=== PATIENT | female | born 1940 | race African-American/Black ===

== ENCOUNTER 2019-04-29 17:21 | Observation (INO) ==
[2019-04-29] MEDS ORDERED: ONDANSETRON 4 MG/2 ML VIAL IV PRN (20:11)
[2019-04-29] MEDS ORDERED: GLUCAGON 1 MG VIAL IM PRN (21:01)
[2019-04-29] MEDS ORDERED: DEXTROSE 50% 25 GM/50 ML VIAL IV PRN (21:01)
[2019-04-29] MEDS: ACETAMINOPHEN 325 MG TABLET PO PRN (21:50)
[2019-04-29] MEDS ORDERED: MORPHINE 4 MG/1 ML VIAL IV PRN (22:50)
[2019-04-30] MEDS ORDERED: traMADol 50 MG TABLET PO PRN (00:05)
[2019-04-30] MEDS: hydrALAZINE 20 MG/1 ML VIAL IV PRN ×2 (00:26→05:20)
[2019-04-30] MEDS: traMADol 50 MG TABLET PO PRN ×3 (00:47→22:02)
[2019-04-30] MEDS: OLANZapine 5 MG TABLET PO SCH ×2 (01:35→22:02)
[2019-04-30 01:53] LABS: Basophils % 0.3 % (0.0-0.8); Eosinophils % 0.5 % (0.00-10.9); Hematocrit 36.5 VOL% (35.7-47.0); Hemoglobin 11.3 GM/DL (12.0-16.0); Immature Granulocytes % 0.3 %; Immature Granulocytes Absolute 0.01 #; Mean Corpuscular Volume 93.8 FL (87-102); Monocytes % 8.2 % (1.7-12.7); Neutrophils % 64.7 % (38.7-73.9); Platelet Count 195 T/CUMM (130-400); Red Blood Count 3.89 MC/CUMM (3.8-5.5); Red Cell Distribution Width 12.5 % (9.3-17.3); White Blood Count 3.9 T/CUMM (4-12)
[2019-04-30 02:07] LABS: Calcium 9.1 MG/DL (8.5-10.1); Osmolality,Calculated 300.1 MOS/KG (273-304)
[2019-04-30] MEDS ORDERED: LISINOPRIL 20 MG TABLET PO SCH (09:00)
[2019-04-30] MEDS ORDERED: cloNIDine 0.1 MG TABLET PO SCH (09:00)
[2019-04-30] MEDS: GABAPENTIN 300 MG CAPSULE PO SCH (09:06)
[2019-04-30] MEDS: carvediloL 25 MG TABLET PO SCH ×2 (09:06→22:01)
[2019-04-30] MEDS: FERROUS SULFATE 325 MG TABLET PO SCH ×2 (09:06→22:02)
[2019-04-30] MEDS: PANTOPRAZOLE 40 MG TABLET PO SCH (09:06)
[2019-04-30] MEDS: RIVAROXABAN 10 MG TABLET PO SCH (09:06)
[2019-04-30] MEDS: LEVOTHYROXINE 50 MCG TABLET PO SCH (09:07)
[2019-04-30] MEDS: INSULIN REGULAR 100 UNIT/ML SUBCUT SCH ×4 (09:40→22:03)
[2019-04-30] MEDS: glipiZIDE 10 MG TABLET PO SCH ×2 (09:40→17:19)
[2019-04-30] MEDS: NITROGLYCERIN 2% OINT 1 INCH/GM PACK TOP SCH ×2 (12:05→22:02)
[2019-04-30 13:11] LABS: Troponin I 0.128 NG/ML (0.00-0.045)
[2019-04-30] MEDS: cloNIDine 0.1 MG TABLET PO SCH ×2 (15:32→22:02)
[2019-04-30] MEDS: hydrALAZINE 25 MG TABLET PO SCH ×2 (15:32→22:03)
[2019-04-30 16:48] LABS: Troponin I 0.113 NG/ML (0.00-0.045)
[2019-04-30 19:37] LABS: Troponin I 0.104 NG/ML (0.00-0.045)
[2019-04-30] MEDS: SIMVASTATIN 40 MG TABLET PO SCH (22:01)
[2019-04-30] MEDS: INSULIN NPH/REGULAR 70/30 100 UNIT/ML SUBCUT SCH (22:03)
[2019-05-01 03:30] LABS: Basophils % 0.3 % (0.0-0.8); Eosinophils # 0.1 10*3/uL (0.0-0.87); Eosinophils % 2.7 % (0.00-10.9); Hematocrit 34.9 VOL% (35.7-47.0); Hemoglobin 10.4 GM/DL (12.0-16.0); Immature Granulocytes % 0.6 %; Immature Granulocytes Absolute 0.02 #; Lymphocytes # 1.1 10*3/uL (1.4-4.0); Mean Corpuscular HGB Conc 29.8 GM/DL (32-36); Mean Corpuscular Volume 95.9 FL (87-102); Mean Platelet Volume 12.1 FL (9.6-12.0); Monocytes % 10.1 % (1.7-12.7); Neutrophils % 53.3 % (38.7-73.9); Platelet Count 146 T/CUMM (130-400); Red Blood Count 3.64 MC/CUMM (3.8-5.5); Red Cell Distribution Width 12.6 % (9.3-17.3); White Blood Count 3.4 T/CUMM (4-12)
[2019-05-01 03:37] LABS: Calcium 8.2 MG/DL (8.5-10.1); Osmolality,Calculated 291.4 MOS/KG (273-304)
[2019-05-01] MEDS: LEVOTHYROXINE 50 MCG TABLET PO SCH (06:28)
[2019-05-01] MEDS: INSULIN REGULAR 100 UNIT/ML SUBCUT SCH ×4 (08:29→22:26)
[2019-05-01] MEDS ORDERED: LISINOPRIL 20 MG TABLET PO SCH (09:00)
[2019-05-01] MEDS: glipiZIDE 10 MG TABLET PO SCH ×2 (09:38→17:09)
[2019-05-01] MEDS: GABAPENTIN 300 MG CAPSULE PO SCH (09:54)
[2019-05-01] MEDS: carvediloL 25 MG TABLET PO SCH ×2 (09:54→21:26)
[2019-05-01] MEDS: RIVAROXABAN 10 MG TABLET PO SCH (09:54)
[2019-05-01] MEDS: PANTOPRAZOLE 40 MG TABLET PO SCH (09:54)
[2019-05-01] MEDS: hydrALAZINE 25 MG TABLET PO SCH ×3 (09:54→22:26)
[2019-05-01] MEDS: NITROGLYCERIN 2% OINT 1 INCH/GM PACK TOP SCH ×2 (09:54→21:28)
[2019-05-01] MEDS: cloNIDine 0.1 MG TABLET PO SCH ×2 (09:54→21:26)
[2019-05-01] MEDS: FERROUS SULFATE 325 MG TABLET PO SCH ×2 (09:54→21:26)
[2019-05-01] MEDS: traMADol 50 MG TABLET PO PRN (18:07)
[2019-05-01] MEDS: OLANZapine 5 MG TABLET PO SCH (21:24)
[2019-05-01] MEDS: SIMVASTATIN 40 MG TABLET PO SCH (21:26)
[2019-05-01] MEDS: INSULIN NPH/REGULAR 70/30 100 UNIT/ML SUBCUT SCH (21:26)
[2019-05-02 04:40] LABS: Calcium 8.5 MG/DL (8.5-10.1); Osmolality,Calculated 302.1 MOS/KG (273-304)
[2019-05-02] MEDS: LEVOTHYROXINE 50 MCG TABLET PO SCH (06:02)
[2019-05-02] MEDS: GABAPENTIN 300 MG CAPSULE PO SCH (08:54)
[2019-05-02] MEDS: RIVAROXABAN 10 MG TABLET PO SCH (08:54)
[2019-05-02] MEDS: carvediloL 25 MG TABLET PO SCH ×2 (08:54→21:23)
[2019-05-02] MEDS: FERROUS SULFATE 325 MG TABLET PO SCH ×2 (08:54→21:23)
[2019-05-02] MEDS: glipiZIDE 10 MG TABLET PO SCH ×2 (08:55→17:30)
[2019-05-02] MEDS: cloNIDine 0.1 MG TABLET PO SCH (08:55)
[2019-05-02] MEDS: hydrALAZINE 25 MG TABLET PO SCH (08:55)
[2019-05-02] MEDS: INSULIN REGULAR 100 UNIT/ML SUBCUT SCH ×4 (08:55→21:23)
[2019-05-02] MEDS: PANTOPRAZOLE 40 MG TABLET PO SCH (08:55)
[2019-05-02] MEDS: NITROGLYCERIN 2% OINT 1 INCH/GM PACK TOP SCH (09:30)
[2019-05-02] MEDS: ASPIRIN EC 81 MG TABLET PO SCH (13:31)
[2019-05-02] MEDS: ISOSORBIDE MONONITRATE 30 MG TABLET PO SCH (13:31)
[2019-05-02] MEDS: OLANZapine 5 MG TABLET PO SCH (21:22)
[2019-05-02] MEDS: SIMVASTATIN 40 MG TABLET PO SCH (21:23)
[2019-05-02] MEDS: INSULIN NPH/REGULAR 70/30 100 UNIT/ML SUBCUT SCH (21:24)
[2019-05-02] MEDS: traMADol 50 MG TABLET PO PRN (22:45)
[2019-05-03 05:13] LABS: Basophils % 0.3 % (0.0-0.8); Eosinophils # 0.1 10*3/uL (0.0-0.87); Eosinophils % 4.8 % (0.00-10.9); Hematocrit 33.3 VOL% (35.7-47.0); Hemoglobin 10.1 GM/DL (12.0-16.0); Immature Granulocytes % 0.3 %; Immature Granulocytes Absolute 0.01 #; Lymphocytes % 35.9 % (21.3-54.2); Mean Corpuscular HGB Conc 30.3 GM/DL (32-36); Mean Corpuscular Volume 93.3 FL (87-102); Mean Platelet Volume 11.3 FL (9.6-12.0); Neutrophils % 48.7 % (38.7-73.9); Platelet Count 159 T/CUMM (130-400); Red Blood Count 3.57 MC/CUMM (3.8-5.5); Red Cell Distribution Width 11.9 % (9.3-17.3); White Blood Count 2.9 T/CUMM (4-12)
[2019-05-03 05:39] LABS: Calcium 8.5 MG/DL (8.5-10.1); Osmolality,Calculated 298.4 MOS/KG (273-304)
[2019-05-03 05:47] LABS: Calcium 8.4 MG/DL (8.5-10.1); Osmolality,Calculated 300.3 MOS/KG (273-304)
[2019-05-03] MEDS: LEVOTHYROXINE 50 MCG TABLET PO SCH (06:14)
[2019-05-03] MEDS: INSULIN REGULAR 100 UNIT/ML SUBCUT SCH ×2 (08:44→12:15)
[2019-05-03] MEDS: GABAPENTIN 300 MG CAPSULE PO SCH (09:49)
[2019-05-03] MEDS: FERROUS SULFATE 325 MG TABLET PO SCH (09:49)
[2019-05-03] MEDS: ISOSORBIDE MONONITRATE 30 MG TABLET PO SCH (09:49)
[2019-05-03] MEDS: PANTOPRAZOLE 40 MG TABLET PO SCH (09:49)
[2019-05-03] MEDS: glipiZIDE 10 MG TABLET PO SCH (09:50)
[2019-05-03] MEDS: RIVAROXABAN 10 MG TABLET PO SCH (09:50)
[2019-05-03] MEDS: ASPIRIN EC 81 MG TABLET PO SCH (09:50)
[2019-05-03] MEDS: carvediloL 25 MG TABLET PO SCH (09:50)
[2019-05-03] MEDS ORDERED: MAGNESIUM HYDROXIDE SUSP 30 ML UDCUP PO ONE (10:39)
[2019-05-03] MEDS ORDERED: MAGNESIUM HYDROXIDE SUSP 30 ML UDCUP PO PRN (10:39)
[2019-05-03] MEDS ORDERED: hydrALAZINE 25 MG TABLET PO SCH (11:00)
[2019-05-03] MEDS ORDERED: POLYETHYLENE GLYCOL POWDER 17 GM PACK PO SCH (11:00)
[2019-05-03] MEDS ORDERED: DOCUSATE SODIUM 100 MG CAPSULE PO SCH (11:00)
[2019-05-03 11:21] VITALS: BP 157/80
[2019-05-03] MEDS ORDERED: INFLUENZA VIRUS VACCINE 0.5 ML SYRINGE IM ONE (11:34)
[2019-05-03] MEDS ORDERED: PNEUMOCOCCAL VACCINE (23 VALENT) 0.5 ML VIAL IM ONE (11:34)
[2019-05-03] MEDS: ACETAMINOPHEN 325 MG TABLET PO PRN (11:42)
== END 2019-05-03 14:52 ==
LOC: N.TELEN → SUATTDRO 19:01
PROVIDERS: ADMIT Internal Medicine; ATTEND Hospitalist